=== PATIENT | female | born 1970 ===

== ENCOUNTER 2018-06-19 13:36 | Emergency (ER) | payer MEDICAID ==
[~2018-06-19] VITALS: Ht 165.1 cm; Wt 65.0 kg
[2018-06-19 13:47] VITALS: BP 99/65
== END 2018-06-19 14:21 | disposition left against medical advice (07) ==
LOC: EMS 13:49
DX: M25.572 Pain in left ankle and joints of left foot (principal); Z53.21 Procedure and treatment not carried out due to patient leaving prior to being seen by health care provider